=== PATIENT | female | born 1995 | race Two or more races ===

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

== ENCOUNTER 2017-01-25 20:50 | Emergency (ER) | payer OTHER ==
[~2017-01-25] VITALS: Ht 175.3 cm; Wt 73.1 kg
[2017-01-25 21:54] LABS: ADD MIUA? YES; BILIRUBIN NEGATIVE; BLOOD MODERATE; COLOR STRAW ((YELLOW)); GLUCOSE (STRIP) NEGATIVE; KETONES NEGATIVE; LEUKOCYTES NEGATIVE; NITRITE NEGATIVE; PROTEIN (STRIP) NEGATIVE; SPECIFIC GRAVITY 1.005 (1.000-1.030); UROBILINOGEN 0.2 MG/DL (0.2-1.0)
[2017-01-25 21:56] LABS: HEMATOCRIT 35.6 % (36.0-46.0); MCH 29.4 PG (29.0-34.0); MCHC 34.6 G/DL (30.0-36.0); MEAN PLAT.VOLUME 9.8 uM^3 (9.5-12.4); PLATELET COUNT 273 K/uL (156-360); RBC DIS.WIDTH-SD 37.4 % (39-53); RED BLOOD COUNT 4.19 M/uL (3.80-5.20); WHITE BLOOD COUNT 9.7 K/uL (4.1-10.2)
[2017-01-25 21:58] LABS: BACTERIA NONE SEEN /HPF; EPITHELIAL CELLS RARE /HPF; MUCUS NONE SEEN /LPF; RED BLOOD CELLS 0-5 /HPF (0-5); UCUL ADDED? NO; WHITE BLOOD CELLS 0-5 /HPF (0-5)
[2017-01-25 22:05] LABS: CHLORIDE 108 mEq/L (99-109); POTASSIUM 3.6 mEq/L (3.7-5.4); SODIUM 140 mEq/L (136-147)
[2017-01-25 22:07] LABS: GLUCOSE 88 mg/dL (70-99)
[2017-01-25 22:09] LABS: ANION GAP 9 MEQ/L (2-14); TOTAL BILIRUBIN 0.5 mg/dL (0.0-1.0)
[2017-01-25 22:11] LABS: ALKALINE PHOSPHATASE 67 IU/L (3-129); GFR ESTIMATE (CALCULATED) > 59 mL/min/
[2017-01-25 22:12] LABS: UREA NITROGEN (BUN) 7 mg/dL (9-23)
[2017-01-25 22:24] LABS: QUANTITATIVE HCG < 4.0 MIU/ML
[2017-01-25 23:52] VITALS: BP 146/85
== END 2017-01-25 23:53 | disposition left against medical advice (07) ==
LOC: EME 20:50
PROVIDERS: Physician Assistant
DX: N92.0 Excessive and frequent menstruation with regular cycle (principal); Z87.42 Personal history of other diseases of the female genital tract; Z87.440 Personal history of urinary (tract) infections; F17.200 Nicotine dependence, unspecified, uncomplicated
CPT/HCPCS: 80053; 81003; 84702; 85027; 99281; 99284

== ENCOUNTER 2017-02-16 12:41 | Emergency (ER) | payer OTHER ==
[~2017-02-16] VITALS: Ht 172.7 cm; Wt 72.9 kg
[2017-02-16 13:44] LABS: HEMATOCRIT 39.8 % (36.0-46.0); MCH 29.1 PG (29.0-34.0); MCHC 33.2 G/DL (30.0-36.0); MCV 87.9 FL (83-99); MEAN PLAT.VOLUME 9.9 uM^3 (9.5-12.4); PLATELET COUNT 294 K/uL (156-360); RBC DIS.WIDTH-CV 12.6 % (11.8-14.6); RBC DIS.WIDTH-SD 40.5 % (39-53); RED BLOOD COUNT 4.53 M/uL (3.80-5.20); WHITE BLOOD COUNT 8.2 K/uL (4.1-10.2)
[2017-02-16 13:52] LABS: CHLORIDE 107 mEq/L (99-109); POTASSIUM 4.6 mEq/L (3.7-5.4); SODIUM 141 mEq/L (136-147)
[2017-02-16 13:53] LABS: GLUCOSE 77 mg/dL (70-99)
[2017-02-16 13:55] LABS: ANION GAP 10 MEQ/L (2-14)
[2017-02-16 13:57] LABS: GFR ESTIMATE (CALCULATED) > 59 mL/min/
[2017-02-16 13:58] LABS: UREA NITROGEN (BUN) 10 mg/dL (9-23)
[2017-02-16] MEDS ORDERED: VYVANSE50 MG PO (14:44)
[2017-02-16 15:11] LABS: QUANTITATIVE HCG < 4.0 MIU/ML
[2017-02-16 15:24] LABS: ADD MIUA? YES; BILIRUBIN NEGATIVE; BLOOD NEGATIVE; COLOR AMBER ((YELLOW)); GLUCOSE (STRIP) NEGATIVE; KETONES NEGATIVE; LEUKOCYTES NEGATIVE; NITRITE NEGATIVE; PROTEIN (STRIP) NEGATIVE; SPECIFIC GRAVITY 1.027 (1.000-1.030)
[2017-02-16 15:30] LABS: BACTERIA NONE SEEN /HPF; EPITHELIAL CELLS RARE /HPF; MUCUS 3+ /LPF; RED BLOOD CELLS 0-5 /HPF (0-5); UCUL ADDED? NO; WHITE BLOOD CELLS 0-5 /HPF (0-5)
[2017-02-16] MEDS ORDERED: MOTRIN800 MG PO (16:04)
[2017-02-16 16:46] VITALS: BP 118/69
== END 2017-02-16 16:48 | disposition home or self-care (01) ==
LOC: EME 12:41
PROVIDERS: Nurse Practitioner Family
DX: J11.1 Influenza due to unidentified influenza virus with other respiratory manifestations (principal); F17.200 Nicotine dependence, unspecified, uncomplicated
CPT/HCPCS: 80048; 81003; 84702; 85027; 99281; 99285; J1885; J2765; J7030

== ENCOUNTER 2017-10-25 22:32 | Emergency (ER) | payer OTHER ==
[~2017-10-25] VITALS: Ht 175.3 cm; Wt 66.5 kg
[~2017-10-25 22:32] MED LIST changes: +VYVANSE50 MG PO
[2017-10-25 22:57] LABS: APPEARANCE TURBID ((CLEAR)); BILIRUBIN NEGATIVE; BLOOD MODERATE; COLOR AMBER ((YELLOW)); GLUCOSE (STRIP) NEGATIVE; KETONES NEGATIVE; LEUKOCYTES LARGE; NITRITE NEGATIVE; PROTEIN (STRIP) 100; SPECIFIC GRAVITY 1.023 (1.000-1.030)
[2017-10-25 23:37] LABS: UCUL ADDED? YES; WHITE BLOOD CELLS TNTC /HPF (0-5)
[2017-10-26] MEDS ORDERED: KEFLEX500 MG PO (00:20)
[2017-10-26] MEDS ORDERED: DIFLUCAN150 MG PO (00:25)
[2017-10-26 00:41] VITALS: BP 106/72
[2017-10-26 16:40] LABS: CANDIDA DNA PROBE POSITIVE; GARDNERELLA DNA PROBE NEGATIVE; TRICHOMONAS DNA PROBE NEGATIVE
[2017-10-27 08:56] LABS: SOURCE SWAB
== END 2017-10-26 00:42 | disposition home or self-care (01) ==
LOC: EME 22:32
PROVIDERS: Physician Assistant
DX: N39.0 Urinary tract infection, site not specified (principal); F17.200 Nicotine dependence, unspecified, uncomplicated
CPT/HCPCS: 81003; 81025; 87077; 87086; 87186; 87210; 87480; 87491; 87510; 87591; 87660; 99281; 99284

== ENCOUNTER 2017-12-25 20:01 | Emergency (ER) | payer OTHER ==
[~2017-12-25] VITALS: Ht 175.3 cm; Wt 65.2 kg
[~2017-12-25 20:01] MED LIST changes: +DIFLUCAN150 MG PO; +KEFLEX500 MG PO
[2017-12-25] MEDS ORDERED: FLEXERIL10 MG PO (22:32)
[2017-12-25] MEDS ORDERED: NAPROSYN500 MG PO (22:32)
[2017-12-25 22:53] VITALS: BP 121/86
== END 2017-12-25 22:54 | disposition home or self-care (01) ==
LOC: EME 20:01
DX: S16.1XXA Strain of muscle, fascia and tendon at neck level, initial encounter (principal); V49.40XA Driver injured in collision with unspecified motor vehicles in traffic accident, initial encounter; Y92.410 Unspecified street and highway as the place of occurrence of the external cause
CPT/HCPCS: 72040; 99281; 99283